=== PATIENT | male | born 1975 | race Caucasian/White ===

== ENCOUNTER 2019-05-15 06:02 | Observation (INO) ==
[2019-05-15] MEDS ORDERED: Naloxone 0.4 MG/ML INJ IVP PRN (08:49)
[2019-05-15 09:38] LABS: Hematocrit 43.5 % (37.5-50.1); Hemoglobin 14.5 g/dL (12.9-16.9); Mean Corpuscular HGB Conc 33.3 g/dL (31.6-35.5); Mean Corpuscular Hemoglobin 29.2 pg (28.0-33.3); Mean Corpuscular Volume 87.7 fL (83.0-100.0); Mean Platelet Volume 9.6 fL (9.4-12.4); Platelet Count 221 K/mcL (140-400); Red Blood Count 4.96 M/mcL (4.19-5.50); Red Cell Distribution Width 12.8 % (11.5-14.5); White Blood Count 7.8 K/mcL (4.3-11.1)
[2019-05-15 10:00] LABS: BUN/Creatinine Ratio 6 (6-26); Blood Urea Nitrogen 7 mg/dL (6-20); Carbon Dioxide 27 mEq/L (23-29); Chloride 108 mEq/L (98-107); Glucose 111 mg/dL (70-105); Osmolality,Calculated 285 (280-300); Potassium 3.8 mEq/L (3.5-5.1); Sodium 138 mEq/L (136-145); eGFR For African Americans > 60 (> 60); eGFR For Non-African Americans > 60 (> 60)
[2019-05-15] MEDS: Acetaminophen 325 MG TABLET PO PRN ×2 (10:49→16:29)
[2019-05-15] MEDS: Ondansetron 4 MG/2 ML VIAL IVP PRN ×2 (11:39→21:12)
[2019-05-15] MEDS: *HR* LORazepam 2 MG/ML VIAL IVP PRN (16:47)
[2019-05-15] MEDS ORDERED: Nitroglycerin 0.4 MG TAB.SUBL SL ONE (16:52)
[2019-05-15] MEDS: Nitroglycerin 0.4 MG TAB.SUBL SL PRN ×2 (16:54→21:04)
[2019-05-15] MEDS: *HR* HYDROcodone/Acet 5/325 mg TABLET PO PRN (21:09)
[2019-05-15] MEDS: Melatonin 3 MG TABLET PO SCH (23:09)
[2019-05-16] MEDS: *HR* LORazepam 2 MG/ML VIAL IVP PRN ×2 (03:18→14:40)
[2019-05-16] MEDS: Acetaminophen 325 MG TABLET PO PRN ×2 (03:18→14:40)
[2019-05-16 06:19] LABS: Chol/HDL Ratio 4.1 (0-4.9)
[2019-05-16 08:07] LABS: Estimated Average Glucose 123 mg/dl
[2019-05-16] MEDS: *HR* HYDROcodone/Acet 5/325 mg TABLET PO PRN (12:07)
[2019-05-16] MEDS: Ondansetron 4 MG/2 ML VIAL IVP PRN (14:40)
[2019-05-16] MEDS ORDERED: Mag Hydrox/Al Hydrox/Simeth 30 ML UDC PO PRN (15:19)
[2019-05-16] MEDS: *HR* Heparin 5,000 UNIT/ML VIAL SQ SCH (17:47)
[2019-05-16] MEDS: Melatonin 3 MG TABLET PO SCH (20:09)
[2019-05-17 04:15] LABS: Basophils % 0.3 %; Eosinophils # 0.1 K/mcL (0.0-0.6); Eosinophils % 0.7 %; Hematocrit 45.3 % (37.5-50.1); Hemoglobin 14.9 g/dL (12.9-16.9); Immature Granulocytes % 0.1 % (0-4); Lymphocytes # 2.4 K/mcL (0.6-4.6); Lymphocytes % 34.3 %; Mean Corpuscular HGB Conc 32.9 g/dL (31.6-35.5); Mean Corpuscular Hemoglobin 29.2 pg (28.0-33.3); Mean Corpuscular Volume 88.6 fL (83.0-100.0); Mean Platelet Volume 9.5 fL (9.4-12.4); Monocytes # 0.5 K/mcL (0.0-1.3); Monocytes % 6.9 %; Neutrophils # 4.1 K/mcL (1.6-8.9); Platelet Count 221 K/mcL (140-400); Red Blood Count 5.11 M/mcL (4.19-5.50); Red Cell Distribution Width 12.7 % (11.5-14.5); Segmented Neutrophils % 57.7 %; White Blood Count 7.1 K/mcL (4.3-11.1)
[2019-05-17 04:29] LABS: BUN/Creatinine Ratio 9 (6-26); Blood Urea Nitrogen 11 mg/dL (6-20); Calcium 9.2 mg/dL (8.6-10.3); Carbon Dioxide 29 mEq/L (23-29); Chloride 106 mEq/L (98-107); Glucose 110 mg/dL (70-105); Osmolality,Calculated 288 (280-300); Potassium 3.9 mEq/L (3.5-5.1); Sodium 139 mEq/L (136-145); eGFR For African Americans > 60 (> 60); eGFR For Non-African Americans > 60 (> 60)
[2019-05-17] MEDS: *HR* Heparin 5,000 UNIT/ML VIAL SQ SCH ×2 (05:34→18:37)
[2019-05-17] MEDS: Ondansetron 4 MG/2 ML VIAL IVP PRN (09:45)
[2019-05-17] MEDS ORDERED: Ketorolac 30 MG/ML VIAL IVP ONE (12:52)
[2019-05-17 16:06] VITALS: BP 135/94
[2019-05-17] MEDS ORDERED: traMADol 50 MG TABLET PO PRN (16:21)
[2019-05-17] MEDS ORDERED: Ibuprofen 400 MG TABLET PO PRN (17:11)
== END 2019-05-17 18:40 | disposition home or self-care (01) ==
LOC: 3BNU → SUATTDRO 07:45
PROVIDERS: ADMIT Internal Medicine; ATTEND Internal Medicine